=== PATIENT | male | born 1955 | race Two or more races ===

== ENCOUNTER 2019-08-21 09:09 | Emergency (ER) | payer OTHER ==
[~2019-08-21] VITALS: Ht 185.4 cm; Wt 102.1 kg
--- NOTE | 2019-08-21 09:20 | NUR ---
PATIENT STATES " FELL DOWN LAST 08/19 ON HIS KNEES", C/O R KNEE PAIN AND SWELLING, R FOOT PAIN. TO ER BED 10, HOOKED TO MONITOR, PARTIENT AOx4 , BREATHING EVEN AND UNLABORED, DR BUSTOS AT BEDSIDE
--- NOTE | 2019-08-21 09:44 | NUR ---
[employer] TENDER AT BEDSIDE
--- NOTE | 2019-08-21 10:50 | NUR ---
Patient discharged to home in stable condition. Written and verbal after care instructions given. Patient verbalizes understanding of instruction.
[2019-08-21 10:52] VITALS: BP 152/90
== END 2019-08-21 10:52 | disposition home or self-care (01) ==
LOC: ER 09:09
DX: S80.01XA Contusion of right knee, initial encounter (principal); L84 Corns and callosities; W18.39XA Other fall on same level, initial encounter; Y93.89 Activity, other specified; Y92.89 Other specified places as the place of occurrence of the external cause; Y99.8 Other external cause status
CPT/HCPCS: 73564-TC; 73630-TC